=== PATIENT | male | born 2000 | race Asian ===

== ENCOUNTER 2021-05-28 02:31 | Emergency (ER) | payer OTHER ==
[~2021-05-28] VITALS: Ht 175.3 cm; Wt 65.8 kg
[2021-05-28 02:42] VITALS: BP 112/68
[2021-05-28] MEDS ORDERED: GELATIN SPONGE,ABSORBABLE 1 SPONGE SPONGE TP ONE ×2 (02:58→03:00)
--- NOTE | 2021-05-28 03:13 | NUR ---
Patient discharged to home in stable condition. Written and verbal after care instructions given. Patient verbalizes understanding of instruction. Pt ambulatory with a steady gait
== END 2021-05-28 03:17 | disposition home or self-care (01) ==
LOC: ER 02:40
DX: S61.214A Laceration without foreign body of right ring finger without damage to nail, initial encounter (principal); W45.8XXA Other foreign body or object entering through skin, initial encounter; Y93.G3 Activity, cooking and baking; Y92.9 Unspecified place or not applicable; Y99.8 Other external cause status

== ENCOUNTER 2021-05-29 07:02 | Emergency (ER) | payer OTHER ==
[~2021-05-29] VITALS: Ht 175.3 cm; Wt 65.8 kg
[2021-05-29 07:22] VITALS: BP 109/68
--- NOTE | 2021-05-29 07:28 | NUR ---
PT SEEN BY NISSA MUNIZ
--- NOTE | 2021-05-29 07:56 | NUR ---
Patient discharged to home in stable condition. Written and verbal after care instructions given. Patient verbalizes understanding of instruction.
== END 2021-05-29 07:56 | disposition home or self-care (01) ==
LOC: ER 07:04
DX: S61.204D Unspecified open wound of right ring finger without damage to nail, subsequent encounter (principal); X58.XXXD Exposure to other specified factors, subsequent encounter

== ENCOUNTER 2021-06-03 01:03 | Emergency (ER) | payer OTHER ==
[~2021-06-03] VITALS: Ht 175.3 cm; Wt 65.8 kg
[2021-06-03 01:29] VITALS: BP 113/64
== END 2021-06-03 01:49 | disposition home or self-care (01) ==
LOC: ER 01:03
DX: Z48.00 Encounter for change or removal of nonsurgical wound dressing (principal); S61.204D Unspecified open wound of right ring finger without damage to nail, subsequent encounter; X58.XXXD Exposure to other specified factors, subsequent encounter